=== PATIENT | female | born 1995 | race Caucasian/White ===

== ENCOUNTER 2020-02-21 10:05 | Emergency (ER) | payer BC ==
[~2020-02-21] VITALS: Ht 162.6 cm; Wt 68.2 kg
[2020-02-21 10:10] VITALS: Ht 162.6 cm; Wt 68.2 kg
[2020-02-21 10:55] LABS: BASOPHILS 0.3 % (0-2); EOSINOPHILS 1.4 % (0-7); HEMATOCRIT 39.6 % (36.0-48.0); HEMOGLOBIN 13.2 g/dL (12-16); LYMPHOCYTES 32.8 % (15-50); MCH 30.7 pg (26.0-34.0); MCHC 33.3 g/dL (31.0-37.0); MCV 92.1 fL (80.0-100.0); MONOCYTES 7.8 % (2-11); NEUTROPHILS 57.7 % (40-80); PLATELET COUNT 260 10x3/uL (130-400); RDW 12.5 % (11.5-14.5); WBC 6.3 10x3/uL (4.8-10.8)
[2020-02-21 10:55] LABS: BILIRUBIN NEGATIVE (NEGATIVE); GLUCOSE NEGATIVE (NEGATIVE); KETONE NEGATIVE (NEGATIVE); NITRITE NEGATIVE (NEGATIVE); SPECIFIC GRAVITY 1.025 (1.005-1.020); UROBILINOGEN NORMAL (NORMAL)
[2020-02-21 10:58] LABS: RED CELLS - URINE 0-5 /hpf (0-5)
[2020-02-21 10:59] LABS: BACTERIA FEW /hpf (NEGATIVE); EPITHELIAL CELLS 0-5 /hpf (0-5); HCG URINE NEGATIVE (NEGATIVE)
[2020-02-21 11:02] LABS: CALC OSMOLALITY 275 mosm/kg (275-300); CARBON DIOXIDE 26.3 mmol/L (21.0-32.0); CHLORIDE - SERUM 105 mmol/L (98-107); CREATININE - SERUM 0.8 mg/dL (0.6-1.3); GLUCOSE 87 mg/dL (74-106); POTASSIUM - SERUM 3.7 mmol/L (3.5-5.1); SODIUM 140 mmol/L (136-145); UREA NITROGEN 8 mg/dL (7-18); eGFR NON AFRICAN AMERICAN > 90 mL/min (90-120)
[2020-02-21 11:07] LABS: INR 1.09 (0.85-1.17)
[2020-02-21 11:13] LABS: ALBUMIN 3.9 g/dL (3.4-5.0); ALKALINE PHOSPHATASE 41 U/L (30-120); ALT (SGPT) 28 U/L (10-68); BILIRUBIN - TOTAL 0.33 mg/dL (0.2-1.3); PROTEIN - SERUM 7.6 g/dL (6.4-8.2)
[2020-02-21 11:21] VITALS: BP 126/68
== END 2020-02-21 11:24 | disposition home or self-care (01) ==
LOC: D.ER 10:05
PROVIDERS: Family Medicine
DX: M25.552 Pain in left hip (principal); V47.0XXA Car driver injured in collision with fixed or stationary object in nontraffic accident, initial encounter; Y93.9 Activity, unspecified; Y92.9 Unspecified place or not applicable